=== PATIENT | female | born 1980 | race Two or more races ===

== ENCOUNTER 2016-11-05 21:13 | Emergency (ER) | payer OTHER ==
[~2016-11-05 21:13] MED LIST: CEFU500T66 PO
--- NOTE | 2016-11-05 21:55 | NUR ---
CALLED FOR PT NO ANSWER LWBT
== END 2016-11-05 21:57 | disposition left against medical advice (07) ==
LOC: ER 21:13
DX: Z53.21 Procedure and treatment not carried out due to patient leaving prior to being seen by health care provider (principal)

== ENCOUNTER 2016-12-12 04:48 | Emergency (ER) | payer OTHER ==
[~2016-12-12] VITALS: Ht 177.8 cm; Wt 71.7 kg
--- NOTE | 2016-12-12 05:10 | NUR ---
at bedside for eval.
[2016-12-12 06:05] LABS: BASOPHILS % (AUTO) 0.2 % (0.0-2.0); EOSINOPHILS # (AUTO) 0.1 K/uL (0.0-0.7); EOSINOPHILS % (AUTO) 0.5 % (0.0-7.0); HEMATOCRIT 34.9 % (37-47); HEMOGLOBIN 11.7 G/DL (12.0-16.0); LYMPHOCYTES # (AUTO) 1.7 K/UL (0.8-4.8); LYMPHOCYTES % (AUTO) 12.5 % (20.5-51.5); MEAN CORPUSCULAR HEMOGLOBIN 28.7 UUG (27.0-31.0); MEAN CORPUSCULAR HGB CONC 34 g/dL (32.0-37.0); MEAN CORPUSCULAR VOLUME 85.5 FL (81.0-99.0); MONOCYTES # (AUTO) 0.8 K/UL (0.1-1.30); MONOCYTES % (AUTO) 5.4 % (0.0-11.0); NEUTROPHILS # (AUTO) 11.4 K/UL (1.8-8.9); NEUTROPHILS % (AUTO) 81.4 % (38.5-71.5); PLATELET COUNT (AUTO) 280 K/UL (150-450); RED BLOOD CELL COUNT(AUTO) 4.09 MIL/UL (4.2-5.4)
[2016-12-12 06:06] LABS: BILIRUBIN,DIRECT 0.2 mg/dL (0.0-0.2); CREATININE 0.9 mg/dL (0.6-1.3); POTASSIUM 3.4 mmol/L (3.5-5.1); TOTAL PROTEIN, SERUM 7.4 g/dL (6.4-8.2)
[2016-12-12 06:14] LABS: BAND % (MANUAL) 1 % (0-10); LYMPHOCYTES % (MANUAL) 15 % (20-40); MONOCYTES % (MANUAL) 7 % (2-10); NEUTROPHILS % (MANUAL) 77 % (42-75)
--- NOTE | 2016-12-12 06:49 | NUR ---
Patient discharged to home in stable conditon. Written and verbal after care instructions given. Patient verbalizes understanding of instructions. patient left with stable gait, accompanied
[2016-12-12 06:50] VITALS: BP 118/69
== END 2016-12-12 06:50 | disposition home or self-care (01) ==
LOC: ER 04:51
DX: R06.00 Dyspnea, unspecified (principal); R05 Cough; K21.9 Gastro-esophageal reflux disease without esophagitis; F41.9 Anxiety disorder, unspecified; Z88.8 Allergy status to other drugs, medicaments and biological substances
CPT/HCPCS: 36415; 70030-TC; 71010; 84703; 85025; 93005; A4663

== ENCOUNTER 2016-12-27 18:51 | Emergency (ER) | payer OTHER ==
[~2016-12-27] VITALS: Ht 177.8 cm; Wt 72.6 kg
[2016-12-27] MEDS ORDERED: SERT50TA PO (18:58)
[2016-12-27] MEDS ORDERED: ALPR0.5T8 PO (18:58)
[2016-12-27] MEDS ORDERED: METO-302 PO (18:58)
--- NOTE | 2016-12-27 19:10 | NUR ---
REPORT RECEIVED FROM DAYSHIFT NURSE, PT RESTING IN BED, AWAKE, ALERT, ORIENTED X 3, NO RESP DISTRESS NOTED OR REPORTED UPON ASSESSMENT... MD IN ROOM WITH PT...
--- NOTE | 2016-12-27 19:29 | NUR ---
Patient discharged to home in stable conditon. Written and verbal after care instructions given. Patient verbalizes understanding of instructions. Pt walked out of ER unassisted with belongings at side...
[2016-12-27 19:34] VITALS: BP 121/97
== END 2016-12-27 19:36 | disposition home or self-care (01) ==
LOC: ER 18:52
DX: S00.03XA Contusion of scalp, initial encounter (principal); F41.9 Anxiety disorder, unspecified; I34.1 Nonrheumatic mitral (valve) prolapse; K21.9 Gastro-esophageal reflux disease without esophagitis; W22.8XXA Striking against or struck by other objects, initial encounter; Y93.89 Activity, other specified; Y92.89 Other specified places as the place of occurrence of the external cause; Y99.8 Other external cause status
CPT/HCPCS: A4663

== ENCOUNTER 2017-03-08 06:54 | Emergency (ER) | payer OTHER ==
[~2017-03-08] VITALS: Ht 177.8 cm; Wt 72.6 kg
[~2017-03-08 06:54] MED LIST changes: +ALPR0.5T8 PO; -CEFU500T66 PO; +METO-302 PO; +SERT50TA PO
[2017-03-08 07:28] LABS: BASOPHILS % (AUTO) 0.1 % (0.0-2.0); EOSINOPHILS # (AUTO) 0.1 K/uL (0.0-0.7); EOSINOPHILS % (AUTO) 1.1 % (0.0-7.0); HEMATOCRIT 35.2 % (37-47); HEMOGLOBIN 11.8 G/DL (12.0-16.0); LYMPHOCYTES # (AUTO) 1.8 K/UL (0.8-4.8); LYMPHOCYTES % (AUTO) 20.7 % (20.5-51.5); MEAN CORPUSCULAR HEMOGLOBIN 28.9 UUG (27.0-31.0); MEAN CORPUSCULAR HGB CONC 34 g/dL (32.0-37.0); MEAN CORPUSCULAR VOLUME 86.3 FL (81.0-99.0); MONOCYTES # (AUTO) 0.4 K/UL (0.1-1.30); MONOCYTES % (AUTO) 5.1 % (0.0-11.0); NEUTROPHILS # (AUTO) 6.3 K/UL (1.8-8.9); PLATELET COUNT (AUTO) 271 K/UL (150-450); RED BLOOD CELL COUNT(AUTO) 4.08 MIL/UL (4.2-5.4); WHITE BLOOD COUNT (AUTO) 8.6 K/UL (4.0-11.2)
[2017-03-08 07:36] LABS: BILIRUBIN,DIRECT 0.1 mg/dL (0.0-0.2); BILIRUBIN,TOTAL 0.6 mg/dL (0.2-1.0); CREATININE 0.9 mg/dL (0.6-1.3); POTASSIUM 3.6 mmol/L (3.5-5.1); TOTAL PROTEIN, SERUM 7.2 g/dL (6.4-8.2)
--- NOTE | 2017-03-08 09:34 | NUR ---
Patient discharged to home in stable conditon. Written and verbal after care instructions given. Patient verbalizes understanding of instructions.
== END 2017-03-08 09:37 | disposition home or self-care (01) ==
LOC: ER 06:58
DX: R10.11 Right upper quadrant pain (principal); R10.12 Left upper quadrant pain; R11.10 Vomiting, unspecified; R19.7 Diarrhea, unspecified; K21.9 Gastro-esophageal reflux disease without esophagitis
CPT/HCPCS: 36415; 76700; 80048; 80076; 83690; 85025; 96361; 96374; 99285; A4663; J2405; J7030

== ENCOUNTER 2017-05-22 23:52 | Emergency (ER) | payer OTHER ==
[~2017-05-22] VITALS: Ht 177.8 cm; Wt 75.3 kg
[2017-05-23 00:26] LABS: BASOPHILS # (AUTO) 0.1 K/uL (0.0-8.0); EOSINOPHILS # (AUTO) 0.2 K/uL (0.0-0.7); EOSINOPHILS % (AUTO) 1.8 % (0.0-7.0); HEMATOCRIT 35.7 % (37-47); HEMOGLOBIN 11.8 G/DL (12.0-16.0); LYMPHOCYTES # (AUTO) 3.6 K/UL (0.8-4.8); LYMPHOCYTES % (AUTO) 39.5 % (20.5-51.5); MEAN CORPUSCULAR HGB CONC 33 g/dL (32.0-37.0); MEAN CORPUSCULAR VOLUME 84.9 FL (81.0-99.0); MONOCYTES # (AUTO) 0.7 K/UL (0.1-1.30); MONOCYTES % (AUTO) 7.8 % (0.0-11.0); NEUTROPHILS # (AUTO) 4.4 K/UL (1.8-8.9); NEUTROPHILS % (AUTO) 49.9 % (38.5-71.5); PLATELET COUNT (AUTO) 290 K/UL (150-450)
[2017-05-23 00:29] LABS: CARBON DIOXIDE 24 mmol/L (21-32); CHLORIDE 105 mmol/L (98-107); CREATININE 0.8 mg/dL (0.6-1.3); GLUCOSE 108 mg/dL (74-106); POTASSIUM 3.4 mmol/L (3.5-5.1); UREA NITROGEN, BLOOD 11 mg/dL (7-18)
[2017-05-23] MEDS ORDERED: ONDANSETRON ODT 4 MG TAB.RAPDIS SL ONE ×2 (00:30→02:30)
[2017-05-23 00:35] LABS: ALANINE AMINOTRANSFERASE 19 U/L (14-59); ALKALINE PHOSPHATASE 40 U/L (50-136); ASPARTATE AMINOTRANSFERASE 15 U/L (15-37); BILIRUBIN,DIRECT 0.1 mg/dL (0.0-0.2); BILIRUBIN,TOTAL 0.4 mg/dL (0.2-1.0); TOTAL PROTEIN, SERUM 6.9 g/dL (6.4-8.2)
[2017-05-23] MEDS ORDERED: ONDANSETRON ODT 4 MG TAB.RAPDIS ONE ×2 (00:44→02:39)
--- NOTE | 2017-05-23 00:44 | NUR ---
BIB PARENTS FROM HOME. FAMILY WAS FRANTIC, YELLING AND SCREAMING UPON ARRIVAL. PT IS A 36 Y/O FEMALE. SPEAKING IN FULL SENTENCES. UTILIZING CELL PHONE AT BEDSIDE. NAD NOTED. VSS. HERE FOR: "PASSING OUT" AFTER CONSUMING MELATONIN AND VITAMIN AT HOME. PT VERBALIZED OF FEELING NAUSEATED, NO VOMITING NOTED. MEDICATION ADMINISTERED ORDERED. MD HER AT BEDSIDE PERFORMING MSE. AWARE OF PT'S CURRENT CONDITION. PT IS PERSISTENT IN HAVING IV ACCESS PLACED. MD HER IS AWARE. SPOKE TO PT AND FAMILY VERBALIZING THAT IT IS NOT NECESSARY AT THIS TIME. PT VERBALIZED UNDERSTANDING. WCTM PT AT THIS TIME. WAITING FOR FURTHER PLAN OF CARE.
[2017-05-23 00:47] LABS: ACETAMINOPHEN < 2.0 ug/mL (10-30)
[2017-05-23 00:53] LABS: ETHANOL < 3 MG/DL (0-0)
--- NOTE | 2017-05-23 01:05 | NUR ---
PT IS HIGHLY SOMATIC, PT WAS SEEN SPEAKING ON THE PHONE. PT IS FRANTIC, ALONG WITH FAMILY. MD HER AWARE. [facility] PT
[2017-05-23] MEDS ORDERED: IV NORMAL SALINE 1000 ML BAG IV ONE (01:15)
--- NOTE | 2017-05-23 01:19 | NUR ---
PT'S MOTHER IS HIGHLY OBNOXIOUS, SCREAMING AND YELLING AT STAFF, PROVIDING FLUIDS FOR PT WHEN INFORMED NOT TO. MD AWARE.
--- NOTE | 2017-05-23 01:25 | NUR ---
MOTHER WAS REMOVED FROM BEDSIDE BY CHARGE NURSE; [employer] SE[employer]ON[employer]IST AWARE AND IS CURRENTLY SPEAKING TO PT AT BEDSIDE. MD IS AWARE. PT IS MORE CALM AND COOPERATIVE ONCE MOTHER WAS REMOVED. WCTM PT
[2017-05-23] MEDS ORDERED: LORAZEPAM 2 MG/1 ML VIAL ONE (01:37)
--- NOTE | 2017-05-23 01:52 | NUR ---
PT WENT TO CT; UA COLLECTED AND SENT. HCG SERUM NEGATIVE. PT IS MORE CALM AND COOPERATIVE ONCE MOTHER WAS TAKEN OUT OF BEDSIDE
--- NOTE | 2017-05-23 02:00 | NUR ---
PT REFUSED CT ONCE PT WENT TO CT. MD HER AWARE. PT VERBALIZED "I DONT WANT TO GET IT DONE ANYMORE BECAUSE I GOT MY MRI DONE 2 DAYS AGO." EXPLAINED RISKS AND BENEFITS INCLUDING . PT VERBALIZED UNDERSTANDING AND STILL REFUSED.
[2017-05-23 02:08] LABS: *BILIRUBIN,URIN NEGATIVE (NEGATIVE); *BLOOD, URINE NEGATIVE (NEGATIVE); *CLARITY,URINE SLIGHTLY CLOUDY (CLEAR); *COLOR,URINE YELLOW (YELLOW); *KETONES,URINE 1+ (NEGATIVE); *PROTEIN,URINE 1+ (NEGATIVE); *UROBILINOGEN,URINE 0.2 E.U./dl (NORMAL); LEUKOCYTE ESTERASE ,URINE TRACE (NEGATIVE); NITRITE, URINE NEGATIVE (NEGATIVE); UGLUCOSE NEGATIVE (NEGATIVE)
[2017-05-23 02:11] LABS: *URINE HCG, QUAL NEGATIVE (NEGATIVE)
[2017-05-23 02:13] LABS: BACTERIA,URINE MANY /HPF (NONE SEEN); RBC,URINE 0-3 /HPF (0-3); SQUAMOUS EPITHELIAL CELL,UR MODERATE /HPF (NONE SEEN)
[2017-05-23 02:21] LABS: *AMPHETAMINE, URINE NEGATIVE (NEGATIVE); *BARBITURATE, URINE NEGATIVE (NEGATIVE); *CANNABINOID, URINE NEGATIVE (NEGATIVE); *COCCAINE, URINE NEGATIVE (NEGATIVE); *OPIATE, URINE NEGATIVE (NEGATIVE); *PHENCYCLIDINE SCREEN,URINE NEGATIVE (NEGATIVE)
--- NOTE | 2017-05-23 02:34 | NUR ---
MOTHER WAS BROUGHT BACK AT BEDSIDE. PT AND MOTHER REMAINS CALM AND COOPERATIVE AT THIS TIME AND LESS ANXIOUS. WCTM
--- NOTE | 2017-05-23 03:02 | NUR ---
Patient discharged to home in stable conditon. Written and verbal after care instructions given. Prescription provided as ordered by MD Patient verbalizes understanding of instructions.
[2017-05-23 03:03] VITALS: BP 110/69
== END 2017-05-23 03:04 | disposition home or self-care (01) ==
LOC: ER 23:53
DX: R41.82 Altered mental status, unspecified (principal); I34.1 Nonrheumatic mitral (valve) prolapse; J40 Bronchitis, not specified as acute or chronic; K21.9 Gastro-esophageal reflux disease without esophagitis; Z88.8 Allergy status to other drugs, medicaments and biological substances
CPT/HCPCS: 36415; 80048; 80076; 80307; 81001; 84484; 84703 ×2; 85025; 96360; 99285; A4663; G0480 ×2; G0481; J2060; J7030; Q0162 ×2; 70030-TC; 93005

== ENCOUNTER 2019-03-07 13:35 | Emergency (ER) | payer BC, OTHER ==
[~2019-03-07] VITALS: Ht 177.8 cm; Wt 71.7 kg
[~2019-03-07 13:35] MED LIST changes: -METO-302 PO; +METO-356 PO
[2019-03-07] MEDS ORDERED: METO-356 PO ×2 (13:45)
[2019-03-07 14:09] LABS: BASOPHILS # (AUTO) 0.1 K/uL (0.0-8.0); EOSINOPHILS # (AUTO) 0.1 K/uL (0.0-0.7); EOSINOPHILS % (AUTO) 0.7 % (0.0-7.0); HEMATOCRIT 38.6 % (31.2-41.9); HEMOGLOBIN 12.6 g/dL (10.9-14.3); LYMPHOCYTES # (AUTO) 1.8 K/uL (20.0-40.0); LYMPHOCYTES % (AUTO) 26.5 % (20.5-51.5); MEAN CORPUSCULAR HEMOGLOBIN 28.5 uug (24.7-32.8); MEAN CORPUSCULAR HGB CONC 33 g/dL (32.3-35.6); MEAN CORPUSCULAR VOLUME 87.7 fL (75.5-95.3); MONOCYTES # (AUTO) 0.4 K/uL (2.0-10.0); MONOCYTES % (AUTO) 5.1 % (0.0-11.0); NEUTROPHILS # (AUTO) 4.6 K/uL (1.8-8.9); NEUTROPHILS % (AUTO) 66.7 % (38.5-71.5); PLATELET COUNT (AUTO) 284 K/uL (179-408); RED BLOOD CELL COUNT(AUTO) 4.41 MIL/uL (3.63-4.92)
[2019-03-07 14:19] LABS: CREATININE 0.7 mg/dL (0.6-1.3)
[2019-03-07 14:28] LABS: *URINE HCG, QUAL NEGATIVE (NEGATIVE)
[2019-03-07 14:33] LABS: BILIRUBIN,DIRECT 0.2 mg/dL (0.0-0.2); TOTAL PROTEIN, SERUM 6.9 g/dL (6.4-8.2)
[2019-03-07] MEDS ORDERED: ACETAMINOPHEN ES 500 MG TABLET ONE (17:07)
--- NOTE | 2019-03-07 17:14 | NUR ---
Patient discharged to home in stable conditon. Written and verbal after care instructions given to patient. Patient verbalizes understanding of instructions.
[2019-03-07] MEDS ORDERED: ACETAMINOPHEN 325 MG TABLET PO ONE (17:15)
== END 2019-03-07 17:16 | disposition home or self-care (01) ==
LOC: ER 13:35
DX: R07.89 Other chest pain (principal); R51 Headache; K21.9 Gastro-esophageal reflux disease without esophagitis; F41.9 Anxiety disorder, unspecified; Z88.8 Allergy status to other drugs, medicaments and biological substances; Z79.899 Other long term (current) drug therapy
CPT/HCPCS: 36415; 70030-TC; 71046; 84703; 85025; 93005; A4663; A9150